=== PATIENT | female | born 1940 | race Caucasian/White ===

== ENCOUNTER 2017-02-18 12:50 | Emergency (ER) | payer MEDICARE ==
--- NOTE | 2017-02-18 14:55 | ED ---
Back Pain - History of Current Complaint Chief Complaint: EDBackInjuryPain Stated Complaint: FALL,RIGHT SIDE PAIN Time Seen by Provider: 02/18/17 14:31 Pain Intensity: 5 - Allergies/Home Medications Allergies/Adverse Reactions: Allergies Allergy/AdvReac Type Severity Reaction Status Date / Time No Known Allergies Allergy Verified 02/18/17 13:00 PMH/Surg Hx/FS Hx/Imm Hx Infectious Disease History: No Infectious Disease History: Denies: Traveled Outside the [place] in Last 30 Days - Social History Alcohol Use: None Substance Use Type: Reports: None Smoking Status (MU): Never Smoked Tobacco Physical Exam Vital Signs On Initial Exam: Initial Vitals Temp Pulse Resp BP Pulse Ox 97.8 F 90 18 92/71 98 02/18/17 12:57 02/18/17 12:57 02/18/17 12:57 02/18/17 12:57 02/18/17 12:57 Diagnostics - Vital Signs Vital Signs Temp Pulse Resp BP Pulse Ox 02/18/17 14:39 97.8 F 90 18 92/71 98 02/18/17 12:57 97.8 F 90 18 92/71 98 - Laboratory Lab Statement: Any lab studies that have been ordered have been reviewed, and results considered in the medical decision making process.
--- NOTE | 2017-02-18 15:40 | RAD ---
Indication: Fall, sacral pain. CT of the pelvis was obtained in the axial plane. Sagittal and coronal reconstructed images were obtained. L4, L5 and S1 vertebra as well as the sacrum demonstrates no evidence of fracture. No abnormal soft tissue swelling is noted. The pelvic ring is intact. Inferior and superior pubic rami are grossly unremarkable. Bilaterally the hip joints demonstrates mild degenerative changes with loss of the superior joint space. Osteophyte formation is noted in both hip joints inferiorly. No fracture of the right femoral head and neck is noted. Greater trochanter is otherwise unremarkable. IMPRESSION: NO FRACTURE OF THE PELVIS OR HIPS ARE NOTED. DEGENERATIVE CHANGES OF BOTH HIPS ARE NOTED. NO FRACTURE OF THE SACRUM IS NOTED.
[2017-02-18 16:01] VITALS: BP 99/57
== END 2017-02-18 16:41 | disposition home or self-care (01) ==
LOC: ED 12:50
DX: R10.9 Unspecified abdominal pain (principal)
CPT/HCPCS: 72192; 99282

== ENCOUNTER → 2017-02-21 11:30 | Emergency (ER) | payer MEDICARE ==
[~2017-02-21 11:30] MED LIST: Amoxicillin/Clavulanate TAB* 500 MG PO ONE
[2017-02-21 11:39] VITALS: BP 117/75
--- NOTE | 2017-02-21 12:43 | RAD ---
INDICATION: Fall. Leg bruise. COMPARISON: CT pelvis February 18, 2017 TECHNIQUE: An AP view of the pelvis and AP views of the hip in neutral and abducted position were obtained FINDINGS: Bones: There are no acute bony findings. Joint spaces: The hips articulate normally. The joint spaces are preserved. SI joints/symphysis: The SI joints and symphysis are intact. Other: None IMPRESSION: NO PLAIN RADIOGRAPHIC EVIDENCE OF ACUTE FRACTURE
--- NOTE | 2017-02-21 12:43 | ED ---
Lower Extremity - HPI Summary HPI Summary: 76F w/ PMH of dementia presents with right hip pain for a week. She initially fell on her tailbone on Wednesday. She seemed to only have tailbone pain but gradually throughout week she seemed to complain of right hip pain. She was seen here on and had a negative CT. She has started to use a walker to get around and seems to be slamming her weight on to that side when she sits down. She seems to be gripped the outside of her hip and her groin. She also turns her right leg when she walks. She complains of pelvic pain when she coughs. She is poor historian so hard to get answer if having dysuria but is having frequency and has been wearing depends. She denies any flank pain. She denies any loss of bowel or bladder or saddle anesthesia. Her daughter, her caregiver, states she has been feeling warm but has been given her aleve so temp has been down. Her daughter says at night the aleve is not enough. She is from out of town but when she is her she sees dr Maloney. - History of Current Complaint Chief Complaint: EDExtremityLower Stated Complaint: PELVIC/RT LEG PAIN Time Seen by Provider: 02/21/17 11:57 Pain Intensity: 6 - Allergies/Home Medications Allergies/Adverse Reactions: Allergies Allergy/AdvReac Type Severity Reaction Status Date / Time No Known Allergies Allergy Verified 02/18/17 13:00 PMH/Surg Hx/FS Hx/Imm Hx History: Denies: Hx Acute Renal Failure Neurological History: Reports: Hx Dementia Infectious Disease History: No Infectious Disease History: Denies: Traveled Outside the [place] in Last 30 Days - Family History Known Family History: Positive: Cardiac Disease - Social History Alcohol Use: None Substance Use Type: Reports: None Smoking Status (MU): Never Smoked Tobacco Review of Systems Negative: Fever Negative: Chest Pain Negative: Shortness Of Breath Positive: frequency. Negative: flank pain Positive: Myalgia - right hip pain All Other Systems Reviewed And Are Negative: Yes Physical Exam Triage Information Reviewed: Yes Vital Signs On Initial Exam: Initial Vitals Temp Pulse Resp BP Pulse Ox 97.3 F 94 16 117/75 100 02/21/17 11:33 02/21/17 11:33 02/21/17 11:33 02/21/17 11:33 02/21/17 11:33 Vital Signs Reviewed: Yes Completion Of Physical Exam Limited Due To: Dementia Appearance: Positive: Well-Appearing Skin: Positive: Warm, Dry Head/Face: Positive: Normal Head/Face Inspection Eyes: Positive: Normal, Conjunctiva Clear Respiratory/Lung Sounds: Positive: Clear to Auscultation, Breath Sounds Present Cardiovascular: Positive: Normal, RRR, Pulses are Symmetrical in both Upper and Lower Extremities Abdomen Description: Positive: Nontender, Soft. Negative: CVA Tenderness (R), CVA Tenderness (L) Bowel Sounds: Positive: Present Musculoskeletal: Positive: Limited @ - right hip, internal rotation causes pain , Other - ecchymosis of right hip noted, good pulses Diagnostics - Vital Signs Vital Signs Temp Pulse Resp BP Pulse Ox 02/21/17 12:24 97.3 F 94 16 117/75 100 02/21/17 11:33 97.3 F 94 16 117/75 100 - Laboratory Lab Statement: Any lab studies that have been ordered have been reviewed, and results considered in the medical decision making process. - Radiology hip Xray Interpretation: No Acute Changes Radiology Interpretation Completed By: Radiologist Lower Extremity Course/Dx - Course Course Of Treatment: 76F presents with continuation of right hip pain since Wednesday when fell. was seen here on and has normal CT pelvis. daughter says has been using walker to get around and pain has been increasing. daughter says seems to slam onto her right side when getting into car so worried about reinjury but no other fall since. also has been grabbing crotch, u/a was tried for on but she did not have to urinate. admits to urinary frequency. daughter says potential low grade fever but afebrile now and no flank pain, n/v so do not suspect pyelo. did xray hip to see if any fracture lower on upper leg and was normal. told may need MRI but will need to be done as outpt as still able to ambulate. discussed pain options and decided on trial of tramadol. told to follow up with dr maloney to consider steriods ect. u/a has bacteria, leuko esterase, and nitrates, will treat with augmentin. patient understands and agrees with plan - Diagnoses Differential Diagnosis/HQI/PQRI: Positive: Fracture (Closed), Sprain, Strain, Other - UTI Provider Diagnoses: Right hip pain, UTI (urinary tract infection) Discharge - Discharge Plan Condition: Good Disposition: HOME Prescriptions: Amoxicillin/Clavulanate TAB* [Augmentin TAB 500 mg*] 500 mg PO BID #13 tab traMADol TAB* [Ultram*] 25 mg PO Q8H PRN #9 tab MDD 3 PRN Reason: Pain Patient Education Materials: Urinary Tract Infection in Women (ED) Referrals: Non Staff,Doctor [Primary Care Provider] - Additional Instructions: Take antibiotic twice a day for 7 days, first dose given in ED Take Aleve twice a day Take tramadol as needed every 8 hours for break through pain Follow up with Dr Maloney for continued care Return to ED if develop vomiting, fever, flank pain, or any new or worsening symptoms
[2017-02-21 13:04] LABS: Urine Bacteria 3+ (Absent); Urine Bilirubin Negative (Negative); Urine Glucose Negative (Negative); Urine Nitrite Positive (Negative)
--- NOTE | 2017-02-23 09:02 | PN ---
Progress Note - Progress Note Note: Patient urine culture grew gram neg bacilli >100,000. patient placed on Augmentin will wait for final culture to change antibiotic.
== END | disposition home or self-care (01) ==
LOC: ED 11:30
DX: M25.551 Pain in right hip (principal); N39.0 Urinary tract infection, site not specified; F03.90 Unspecified dementia, unspecified severity, without behavioral disturbance, psychotic disturbance, mood disturbance, and anxiety; W19.XXXA Unspecified fall, initial encounter; Y92.9 Unspecified place or not applicable
CPT/HCPCS: 81003; 81015; 87077; 87086; 87186; 99282; A9270-GY